=== PATIENT | female | born 1980 | race Caucasian/White ===

== ENCOUNTER 2018-05-23 01:50 | Emergency (ER) | payer SELFPAY ==
[~2018-05-23] VITALS: Ht 165.1 cm; Wt 91.6 kg
[2018-05-23] MEDS ORDERED: IBUP-1955 PO (01:58)
--- NOTE | 2018-05-23 03:00 | NUR ---
Patient ambulated with stable gait. AAOx4. Speech is clear, speaks in complete sentences. No neuro deficits noted. Patienc came in with c/o abdominal pain + vaginal bleeding x3 weeks. No respiratory distress noted. No SOB, no cough. No cardiovascular distress noted, all pulses palpable. Patient in lowest position on bed, side rails upx2, call light within reach. Fall precautions implemented per protocol.
[2018-05-23] MEDS ORDERED: KETOROLAC TROMETHAMINE 30 MG INJ ONE (03:10)
[2018-05-23 03:26] LABS: BASOPHILS # (AUTO) 0.1 K/uL (0.0-8.0); BASOPHILS % (AUTO) 0.6 % (0.0-2.0); EOSINOPHILS # (AUTO) 0.3 K/uL (0.0-0.7); EOSINOPHILS % (AUTO) 2.8 % (0.0-7.0); HEMATOCRIT 39.9 % (31.2-41.9); HEMOGLOBIN 13.2 g/dL (10.9-14.3); LYMPHOCYTES # (AUTO) 4.9 K/uL (20.0-40.0); LYMPHOCYTES % (AUTO) 42.9 % (20.5-51.5); MEAN CORPUSCULAR HEMOGLOBIN 29.3 uug (24.7-32.8); MEAN CORPUSCULAR HGB CONC 33 g/dL (32.3-35.6); MEAN CORPUSCULAR VOLUME 88.9 fL (75.5-95.3); MONOCYTES # (AUTO) 0.7 K/uL (2.0-10.0); MONOCYTES % (AUTO) 6.1 % (0.0-11.0); NEUTROPHILS # (AUTO) 5.5 K/uL (1.8-8.9); NEUTROPHILS % (AUTO) 47.6 % (38.5-71.5); PLATELET COUNT (AUTO) 304 K/uL (179-408); RED BLOOD CELL COUNT(AUTO) 4.49 MIL/uL (3.63-4.92); WHITE BLOOD COUNT (AUTO) 11.4 K/uL (3.8-11.8)
[2018-05-23 03:37] LABS: *BILIRUBIN,URIN NEGATIVE (NEGATIVE); *BLOOD, URINE 3+ (NEGATIVE); *CLARITY,URINE SLIGHTLY CLOUDY (CLEAR); *COLOR,URINE LIGHT YELLOW (YELLOW); *KETONES,URINE NEGATIVE (NEGATIVE); *UROBILINOGEN,URINE 0.2 E.U./dl (NORMAL); LEUKOCYTE ESTERASE ,URINE NEGATIVE (NEGATIVE); NITRITE, URINE NEGATIVE (NEGATIVE); PH,URINE 5.5 (5.0-8.0); UGLUCOSE NEGATIVE (NEGATIVE)
[2018-05-23 03:39] LABS: *URINE HCG, QUAL NEGATIVE (NEGATIVE)
--- NOTE | 2018-05-23 03:40 | NUR ---
US at bedside with female keycase assembler from [facility]
[2018-05-23 03:42] LABS: CREATININE 0.8 mg/dL (0.6-1.3); POTASSIUM 3.8 mmol/L (3.5-5.1)
[2018-05-23 03:43] LABS: BACTERIA,URINE NONE SEEN /HPF (NONE SEEN); RBC,URINE 80-100 /HPF (0-3); SQUAMOUS EPITHELIAL CELL,UR MODERATE /HPF (NONE SEEN)
[2018-05-23] MEDS ORDERED: KETOROLAC TROMETHAMINE 30 MG INJ IM ONE (04:30)
--- NOTE | 2018-05-23 05:03 | NUR ---
Patient discharged to home in stable conditon. Written and verbal after care instructions given. Patient verbalizes understanding of instructions. Pt. d/c w/ prescription per MD order, d/c papers signed, all belongings w/ pt., ambulated off unit w/ steady gait accompanied by , left in private vehicle, NAD
== END 2018-05-23 05:09 | disposition home or self-care (01) ==
LOC: ER 01:55
DX: D21.9 Benign neoplasm of connective and other soft tissue, unspecified (principal); R10.2 Pelvic and perineal pain; Z79.1 Long term (current) use of non-steroidal anti-inflammatories (NSAID)
CPT/HCPCS: 36415; 76856; 80048; 81001; 84703; 85025; 96372; 99284; J1885; A4663

== ENCOUNTER 2018-05-25 19:28 | Emergency (ER) | payer MEDICAID ==
[~2018-05-25] VITALS: Ht 165.1 cm; Wt 90.7 kg
[~2018-05-25 19:28] MED LIST: IBUP-1955 PO
[2018-05-25 20:11] LABS: *BILIRUBIN,URIN NEGATIVE (NEGATIVE); *CLARITY,URINE CLEAR (CLEAR); *COLOR,URINE YELLOW (YELLOW); *KETONES,URINE NEGATIVE (NEGATIVE); *UROBILINOGEN,URINE 0.2 E.U./dl (NORMAL); LEUKOCYTE ESTERASE ,URINE NEGATIVE (NEGATIVE); NITRITE, URINE NEGATIVE (NEGATIVE); PH,URINE 8.5 (5.0-8.0); UGLUCOSE NEGATIVE (NEGATIVE)
[2018-05-25 20:12] LABS: *BLOOD, URINE TRACE (NEGATIVE); *URINE HCG, QUAL NEGATIVE (NEGATIVE)
[2018-05-25 20:17] LABS: MUCUS,URINE FEW /LPF (0-FEW); SQUAMOUS EPITHELIAL CELL,UR MODERATE /HPF (NONE SEEN); WBC,URINE 0-3 /HPF (0-3)
--- NOTE | 2018-05-25 20:30 | NUR ---
Dr. Rojas at bedside for MSE.
[2018-05-25] MEDS: IV NORMAL SALINE 1000 ML BAG IV ONE ×2 (20:50→21:40)
[2018-05-25] MEDS ORDERED: IBUPROFEN 800 MG TABLET ONE (20:54)
[2018-05-25] MEDS ORDERED: ACETAMINOPHEN ES 500 MG TABLET ONE (20:54)
[2018-05-25] MEDS: ACETAMINOPHEN ES 500 MG TABLET PO ONE (20:55)
[2018-05-25] MEDS: IBUPROFEN 800 MG TABLET PO ONE (20:55)
--- NOTE | 2018-05-25 20:55 | NUR ---
Xray at bedside.
[2018-05-25 20:56] LABS: BASOPHILS % (AUTO) 0.6 % (0.0-2.0); EOSINOPHILS # (AUTO) 0.1 K/uL (0.0-0.7); EOSINOPHILS % (AUTO) 1.4 % (0.0-7.0); HEMATOCRIT 36.4 % (31.2-41.9); HEMOGLOBIN 12.1 g/dL (10.9-14.3); LYMPHOCYTES # (AUTO) 1.3 K/uL (20.0-40.0); LYMPHOCYTES % (AUTO) 16.8 % (20.5-51.5); MEAN CORPUSCULAR HEMOGLOBIN 29.2 uug (24.7-32.8); MEAN CORPUSCULAR HGB CONC 33 g/dL (32.3-35.6); MEAN CORPUSCULAR VOLUME 87.6 fL (75.5-95.3); MONOCYTES # (AUTO) 0.7 K/uL (2.0-10.0); MONOCYTES % (AUTO) 9.5 % (0.0-11.0); NEUTROPHILS # (AUTO) 5.4 K/uL (1.8-8.9); NEUTROPHILS % (AUTO) 71.7 % (38.5-71.5); PLATELET COUNT (AUTO) 263 K/uL (179-408); RED BLOOD CELL COUNT(AUTO) 4.16 MIL/uL (3.63-4.92); WHITE BLOOD COUNT (AUTO) 7.5 K/uL (3.8-11.8)
[2018-05-25 21:05] LABS: CREATININE 0.7 mg/dL (0.6-1.3); POTASSIUM 3.7 mmol/L (3.5-5.1)
[2018-05-25 21:17] LABS: BILIRUBIN,DIRECT 0.1 mg/dL (0.0-0.2); BILIRUBIN,TOTAL 0.3 mg/dL (0.2-1.0); TOTAL PROTEIN, SERUM 8.5 g/dL (6.4-8.2)
--- NOTE | 2018-05-25 21:42 | NUR ---
Patient's temperature 102.0 F oral. notified.
--- NOTE | 2018-05-25 22:17 | NUR ---
Pt out of ER for CT.
--- NOTE | 2018-05-25 22:27 | NUR ---
Pt back to ER from CT.
[2018-05-25] MEDS ORDERED: CEFTRIAXONE 1 G VIAL ONE (22:42)
[2018-05-25] MEDS ORDERED: LIDOCAINE HCL 1% 20 ML VIAL ONE (22:45)
[2018-05-25] MEDS: CEFTRIAXONE 2 G in IV DEXTROSE 5% 100 ML IV ONE (22:57)
[2018-05-25] MEDS: LIDOCAINE HCL 1% 20 ML VIAL IJ ONE (22:57)
[2018-05-25] MEDS ORDERED: MORPHINE SULFATE 4 MG/1 ML DISP.SYRIN ONE (23:12)
[2018-05-25] MEDS ORDERED: ONDANSETRON 4 MG/2 ML VIAL ONE (23:12)
[2018-05-25] MEDS: MORPHINE SULFATE 4 MG/1 ML DISP.SYRIN IV ONE (23:14)
[2018-05-25] MEDS: ONDANSETRON 4 MG/2 ML VIAL IV ONE (23:15)
--- NOTE | 2018-05-25 23:18 | NUR ---
Pt's temperature decreased to 98.9 F. notified.
[2018-05-25 23:44] LABS: CSF PROTEIN 32 mg/dL (15-45)
[2018-05-25 23:45] LABS: CSF GLUCOSE 93 mg/dL (40-70)
--- NOTE | 2018-05-26 00:20 | NUR ---
Patient discharged to home in stable conditon. Written and verbal after care instructions given. Patient verbalizes understanding of instructions. Patient ambulated out of ER with steady gait, no acute signs of distress, VSS, all belongings taken, IV site discontinued, to be driven home via private vehicle by .
[2018-05-26 00:22] VITALS: BP 118/72
[2018-05-28 10:07] LABS: *HSV 1/2 PCR 1DNA CSF Negative (Negative); *HSV 1/2 PCR 2DNA CSF Negative (Negative)
== END 2018-05-26 00:22 | disposition home or self-care (01) ==
LOC: ER 19:28
DX: R51 Headache (principal); R50.9 Fever, unspecified; R20.2 Paresthesia of skin; R09.89 Other specified symptoms and signs involving the circulatory and respiratory systems; R05 Cough; Z79.1 Long term (current) use of non-steroidal anti-inflammatories (NSAID)
CPT/HCPCS: 36415; 62270; 70450; 71045; 80048; 80076; 81001; 82945; 83605; 84157; 84703; 85025; 86403; 87040 ×2; 87070 ×2; 87086; 87205; 87400; 87529; 89051; 93005; 96361; 96365; 96375; 99284; J0696; J2270; J2405; J3490; J7060; A4663; A9150; J7030

== ENCOUNTER 2018-05-28 13:11 | Emergency (ER) | payer MEDICAID ==
[~2018-05-28] VITALS: Ht 165.1 cm; Wt 90.7 kg
--- NOTE | 2018-05-28 13:21 | NUR ---
PT A/OX4, PRESENTS TO THE ER C/O HEADACHE. PT WAS EXAMINED IN THIS ER FOR THE SAME COMPLAINT ON 05/25/18. PT DENIES PHOTOPHOBIA. NO FACIAL DROOP NOTED, NO ARM DRIFT, NO HEMILATERAL WEAKNESS. SECONDARY COMPLAINT: NAUSEA VSS. PT DENIES PAIN, C/P, SOB, DIZZINESS. ER MD AT BEDSIDE FOR MSE.
[2018-05-28] MEDS ORDERED: IV NORMAL SALINE 1000 ML BAG IV ONE (13:30)
[2018-05-28] MEDS ORDERED: PROCHLORPERAZINE EDISYLATE 10 MG/2 ML VIAL IV ONE (13:30)
[2018-05-28] MEDS ORDERED: diphenhydrAMINE 50 MG/1 ML VIAL IV ONE (13:30)
[2018-05-28] MEDS ORDERED: MORPHINE SULFATE 2 MG/1 ML DISP.SYRIN IV ONE (13:30)
[2018-05-28] MEDS ORDERED: diphenhydrAMINE 50 MG/1 ML VIAL ONE (13:46)
[2018-05-28] MEDS ORDERED: PROCHLORPERAZINE EDISYLATE 10 MG/2 ML VIAL ONE (13:46)
[2018-05-28] MEDS ORDERED: MORPHINE SULFATE 4 MG/1 ML DISP.SYRIN ONE (13:46)
--- NOTE | 2018-05-28 14:29 | NUR ---
GURPREET STONE AT BEDSIDE FOR PT UPDATE.
--- NOTE | 2018-05-28 14:57 | NUR ---
PT STABLE ON HER FEET, ABLE TO SELF-AMBULATE W/O DIFFICULTY.
[2018-05-28 15:08] VITALS: BP 118/77
--- NOTE | 2018-05-28 15:08 | NUR ---
Patient discharged to home in stable conditon. Written and verbal after care instructions given. Patient verbalizes understanding of instructions. PT D/C W/ PRESCRIPTIONS. ALL BELONGINGS W/ PT. PT SELF-AMBULATED W/O DIFFICULTY. PT WILL BE DRIVEN HOME BY SPOUSE IN PRIVATE VEHICLE. 22G IV ACCESS IN L HAND REMOVED PRIOR TO D/C - INNER CANNULA INTACT.
== END 2018-05-28 15:09 | disposition home or self-care (01) ==
LOC: ER 13:11
DX: R51 Headache (principal); R11.10 Vomiting, unspecified; H53.149 Visual discomfort, unspecified; Z79.1 Long term (current) use of non-steroidal anti-inflammatories (NSAID)
CPT/HCPCS: 96361; 96374; 96375; 99283; J0780; J1200; J2270; A4663; J7030

== ENCOUNTER 2018-07-18 23:47 | Emergency (ER) | payer MEDICAID ==
[~2018-07-18] VITALS: Ht 165.1 cm; Wt 86.2 kg
--- NOTE | 2018-07-19 00:10 | NUR ---
Patient ambulated with stable gait. A/Ox4. Speech is clear, speaks in complete sentences. Patient came in for c/o headache s/p heavy menstrual cycles x 3 weeks ago. Respiratory even and unlabored, but c/o sob. No current GI/ distress Patient in bed accompanied by friend at bedside, bed at lowest position, sr upx2, call light within reach. Fall precautions implemented per protocol.
[2018-07-19] MEDS ORDERED: MORPHINE SULFATE 2 MG/1 ML DISP.SYRIN ONE (00:14)
[2018-07-19] MEDS ORDERED: MORPHINE SULFATE 2 MG/1 ML DISP.SYRIN IV ONE (00:15)
[2018-07-19] MEDS ORDERED: IV NORMAL SALINE 1000 ML BAG IV ONE (00:15)
[2018-07-19 00:23] LABS: BASOPHILS % (AUTO) 0.4 % (0.0-2.0); EOSINOPHILS # (AUTO) 0.3 K/uL (0.0-0.7); HEMATOCRIT 26.2 % (31.2-41.9); HEMOGLOBIN 8.6 g/dL (10.9-14.3); LYMPHOCYTES # (AUTO) 4.5 K/uL (20.0-40.0); LYMPHOCYTES % (AUTO) 42.9 % (20.5-51.5); MEAN CORPUSCULAR HEMOGLOBIN 27.9 uug (24.7-32.8); MEAN CORPUSCULAR HGB CONC 33 g/dL (32.3-35.6); MEAN CORPUSCULAR VOLUME 84.6 fL (75.5-95.3); MONOCYTES # (AUTO) 0.7 K/uL (2.0-10.0); MONOCYTES % (AUTO) 6.1 % (0.0-11.0); NEUTROPHILS % (AUTO) 47.6 % (38.5-71.5); PLATELET COUNT (AUTO) 326 K/uL (179-408); RED BLOOD CELL COUNT(AUTO) 3.09 MIL/uL (3.63-4.92); WHITE BLOOD COUNT (AUTO) 10.6 K/uL (3.8-11.8)
[2018-07-19 00:30] LABS: CREATININE 0.7 mg/dL (0.6-1.3); POTASSIUM 4.2 mmol/L (3.5-5.1)
[2018-07-19 01:12] VITALS: BP 110/71
--- NOTE | 2018-07-19 01:12 | NUR ---
Patient discharged to home in stable conditon. Written and verbal after care instructions given. Patient verbalizes understanding of instructions. Patient ambulated with stable gait.
== END 2018-07-19 01:13 | disposition home or self-care (01) ==
LOC: ER 23:48
DX: N93.9 Abnormal uterine and vaginal bleeding, unspecified (principal); D50.0 Iron deficiency anemia secondary to blood loss (chronic); R42 Dizziness and giddiness; R51 Headache; Z79.1 Long term (current) use of non-steroidal anti-inflammatories (NSAID)
CPT/HCPCS: 36415; 71045; 80048; 84484; 84702; 85025; 93005; 96361; 96374; 99284; J2270; 70030-TC; A4663; J7030

== ENCOUNTER 2019-04-24 00:17 | Emergency (ER) | payer MEDICAID ==
[~2019-04-24] VITALS: Ht 165.1 cm; Wt 86.2 kg
--- NOTE | 2019-04-24 00:35 | NUR ---
PATIENT WAS MSE BY DR HASKINS IN ROOM 01A. PATIENT A & O X4.
[2019-04-24] MEDS ORDERED: ONDANSETRON ODT 4 MG TAB.RAPDIS ONE (00:40)
[2019-04-24] MEDS ORDERED: HYDROCODONE/APAP 10-325 MG TABLET ONE (00:40)
[2019-04-24] MEDS ORDERED: ONDANSETRON ODT 4 MG TAB.RAPDIS SL ONE (00:45)
[2019-04-24] MEDS ORDERED: HYDROCODONE/APAP 10-325 MG TABLET PO ONE (00:45)
--- NOTE | 2019-04-24 01:17 | NUR ---
Patient discharged to home in stable condition. Written and verbal after care instructions given. Patient and family verbalizes understanding of instructions.
[2019-04-24 01:19] VITALS: BP 114/67
== END 2019-04-24 01:20 | disposition home or self-care (01) ==
LOC: ER 00:18
DX: G43.109 Migraine with aura, not intractable, without status migrainosus (principal); Z79.899 Other long term (current) drug therapy; Z79.84 Long term (current) use of oral hypoglycemic drugs
CPT/HCPCS: 93005; A4663; Q0162

== ENCOUNTER 2021-09-03 12:32 | Emergency (ER) | payer MEDICAID ==
[~2021-09-03] VITALS: Ht 165.1 cm; Wt 86.2 kg
[~2021-09-03 12:32] MED LIST changes: +METF-440 PO
--- NOTE | 2021-09-03 12:35 | NUR ---
MD at bedside, medical screening exam in progress.
--- NOTE | 2021-09-03 12:50 | NUR ---
DR LINDSEY AT BEDSIDE FOR EVALUATION.
[2021-09-03] MEDS ORDERED: PROCHLORPERAZINE EDISYLATE 10 MG/2 ML VIAL ONE (12:52)
[2021-09-03] MEDS ORDERED: KETOROLAC TROMETHAMINE 15 MG INJ ONE (12:52)
[2021-09-03] MEDS ORDERED: PROCHLORPERAZINE EDISYLATE 10 MG/2 ML VIAL IV ONE (13:00)
[2021-09-03] MEDS ORDERED: KETOROLAC TROMETHAMINE 15 MG INJ IVP ONE (13:00)
[2021-09-03 13:01] LABS: HEMATOCRIT 36.8 % (31.2-41.9); MEAN CORPUSCULAR HEMOGLOBIN 27.8 uug (24.7-32.8); MEAN CORPUSCULAR VOLUME 84.3 fL (75.5-95.3); PLATELET COUNT (AUTO) 314 K/uL (179-408)
[2021-09-03 13:24] LABS: BILIRUBIN,DIRECT 0.1 mg/dL (0.0-0.2); BILIRUBIN,TOTAL 0.3 mg/dL (0.2-1.0); CREATININE 0.8 mg/dL (0.6-1.3); TOTAL PROTEIN, SERUM 8.5 g/dL (6.4-8.2)
[2021-09-03] MEDS ORDERED: CODE1CAP24 GT (14:37)
--- NOTE | 2021-09-03 15:24 | NUR ---
Patient discharged to home in stable condition. Written and verbal after care instructions given to pt and family. Patient verbalizes understanding of instructions. Stressed follow up or return to ER for worsening s/s. IV site removed aseptically.
[2021-09-03 15:25] VITALS: BP 128/70
== END 2021-09-03 15:26 | disposition home or self-care (01) ==
LOC: ER 12:32
DX: R07.9 Chest pain, unspecified (principal); E11.9 Type 2 diabetes mellitus without complications; Z79.84 Long term (current) use of oral hypoglycemic drugs
CPT/HCPCS: 36415; 71045; 80048; 80076; 84484; 85025; 93005; 96374; 96375; 99285; J0780; J1885; A4663

== ENCOUNTER 2021-10-09 20:56 | Emergency (ER) | payer MEDICAID ==
[~2021-10-09] VITALS: Ht 154.9 cm; Wt 87.5 kg
[~2021-10-09 20:56] MED LIST changes: +CODE1CAP24 GT
--- NOTE | 2021-10-09 22:53 | NUR ---
Patient walked in ER with steady gait. NAD noted. patient is a/ox4
[2021-10-09] MEDS ORDERED: ACETAMINOPHEN 325 MG TABLET PO ONE (23:00)
[2021-10-09] MEDS ORDERED: SULFAMETH/TRIMETH 800/160 MG TABLET PO ONE (23:00)
[2021-10-09] MEDS ORDERED: SULFAMETH/TRIMETH 800/160 MG TABLET ONE (23:01)
[2021-10-09] MEDS ORDERED: ACETAMINOPHEN 325 MG TABLET ONE (23:01)
[2021-10-09] MEDS ORDERED: LIDOCAINE 1%-EPI 1:100,000 20 ML VIAL ONE (23:09)
[2021-10-09] MEDS ORDERED: LIDOCAINE 1%-EPI 1:100,000 20 ML VIAL IJ ONE (23:15)
[2021-10-09] MEDS ORDERED: BACITRACIN ZINC OINT 15 GM TUBE ONE (23:30)
--- NOTE | 2021-10-09 23:30 | NUR ---
Dr Sylvester verbally ordered bacitracin ointment. Medication given
[2021-10-09 23:41] LABS: *URINE HCG, QUAL NEGATIVE (NEGATIVE)
[2021-10-09] MEDS ORDERED: ACET-2154 PO (23:58)
[2021-10-09] MEDS ORDERED: SULF1TAB48 PO (23:58)
--- NOTE | 2021-10-10 00:11 | NUR ---
Patient discharged to home in stable condition. Written and verbal after care instructions given. Patient verbalizes understanding of instructions. Stressed follow up or return to ER for worsening s/s. Patient is a/ox4, NAD noted. Patient is able to walk with steady gait
[2021-10-10 00:12] VITALS: BP 122/81
== END 2021-10-10 00:12 | disposition home or self-care (01) ==
LOC: ER 21:02
DX: L02.416 Cutaneous abscess of left lower limb (principal); L03.116 Cellulitis of left lower limb; E11.9 Type 2 diabetes mellitus without complications; E78.5 Hyperlipidemia, unspecified; E66.9 Obesity, unspecified; Z68.36 Body mass index [BMI] 36.0-36.9, adult; Z79.84 Long term (current) use of oral hypoglycemic drugs
CPT/HCPCS: 99284; 10060; 76536; 84703; J3490; A4663

== ENCOUNTER 2023-07-17 22:02 | Emergency (ER) | payer MEDICAID, OTHER ==
[~2023-07-17] VITALS: Ht 160 cm; Wt 86.2 kg
[~2023-07-17 22:02] MED LIST changes: +ACET-2154 PO; +SULF1TAB48 PO
[2023-07-17] MEDS ORDERED: CLINDAMYCIN 900MG/D5W 100ML IVPB **ER PYXIS ONLY IJ ONE (22:20)
[2023-07-17] MEDS ORDERED: CLIN300C12 PO (22:24)
[2023-07-17] MEDS: CLINDAMYCIN PHOSPHATE IV 900 MG in IV DEXTROSE 5% 100 ML IV ONE (22:25)
[2023-07-17] MEDS ORDERED: IBUPROFEN 600 MG TABLET ONE ×2 (23:02→23:03)
[2023-07-17] MEDS: IBUPROFEN 600 MG TABLET PO ONE (23:05)
[2023-07-17 23:06] VITALS: BP 146/86; O2SAT 99
== END 2023-07-17 23:05 | disposition home or self-care (01) ==
LOC: ER 22:07
DX: N76.4 Abscess of vulva (principal); G43.909 Migraine, unspecified, not intractable, without status migrainosus; E78.5 Hyperlipidemia, unspecified; E66.9 Obesity, unspecified; Z68.33 Body mass index [BMI] 33.0-33.9, adult; Z79.899 Other long term (current) drug therapy; Z88.2 Allergy status to sulfonamides
CPT/HCPCS: 99283; 96374; J3490 ×2; A4606; A4663

== ENCOUNTER 2024-03-04 | Emergency (ER) | payer OTHER, MEDICAID ==
[~2024-03-04] VITALS: Ht 165.1 cm; Wt 86.2 kg
[~2024-03-04] MED LIST changes: +CLIN300C12 PO; +CLIN300C3 PO; +HYDR-4209 PO
[2024-03-04] MEDS ORDERED: KETOROLAC TROMETHAMINE 15 MG INJ ONE (03:09)
[2024-03-04] MEDS ORDERED: METOCLOPRAMIDE HCL 10 MG/2 ML VIAL ONE (03:09)
[2024-03-04] MEDS: KETOROLAC TROMETHAMINE 15 MG INJ IVP ONE (03:15)
[2024-03-04] MEDS: METOCLOPRAMIDE HCL 10 MG/2 ML VIAL IV ONE (03:15)
[2024-03-04 03:16] LABS: BASOPHILS # (AUTO) 0.1 K/UL (0.0-0.2); BASOPHILS % (AUTO) 0.7 % (0.0-2.0); EOSINOPHILS # (AUTO) 0.1 K/uL (0.0-0.7); EOSINOPHILS % (AUTO) 1.8 % (0.0-7.0); HEMATOCRIT 29.5 % (31.2-41.9); HEMOGLOBIN 9.3 g/dL (10.9-14.3); LYMPHOCYTES # (AUTO) 3.8 K/uL (0.8-4.8); LYMPHOCYTES % (AUTO) 47.5 % (20.5-51.5); MEAN CORPUSCULAR HEMOGLOBIN 22.8 uug (24.7-32.8); MEAN CORPUSCULAR HGB CONC 32 g/dL (32.3-35.6); MEAN CORPUSCULAR VOLUME 72.1 fL (75.5-95.3); MONOCYTES # (AUTO) 0.4 K/uL (0.1-1.30); MONOCYTES % (AUTO) 5.5 % (0.0-11.0); NEUTROPHILS # (AUTO) 3.6 K/uL (1.8-8.9); NEUTROPHILS % (AUTO) 44.5 % (38.5-71.5); PLATELET COUNT (AUTO) 362 K/uL (179-408); RED CELL DISTRIBUTION WIDTH 17.9 % (12.3-17.7)
[2024-03-04 03:23] LABS: *BILIRUBIN,URIN NEGATIVE (NEGATIVE); *BLOOD, URINE 2+ (NEGATIVE); *CLARITY,URINE CLEAR (CLEAR); *COLOR,URINE YELLOW (YELLOW); *KETONES,URINE NEGATIVE (NEGATIVE); *PROTEIN,URINE NEGATIVE (NEGATIVE); *UROBILINOGEN,URINE 0.2 E.U./dl (NORMAL); LEUKOCYTE ESTERASE ,URINE NEGATIVE (NEGATIVE); NITRITE, URINE NEGATIVE (NEGATIVE); PH,URINE 5.5 (5.0-8.0); UGLUCOSE 3+ (NEGATIVE)
[2024-03-04 03:25] LABS: *URINE HCG, QUAL NEGATIVE (NEGATIVE)
[2024-03-04 03:28] LABS: DIFFERENTIAL COMMENT 1
[2024-03-04 03:33] LABS: CALCIUM 8.7 mg/dL (8.5-10.1); CARBON DIOXIDE 27 mmol/L (21-32); CHLORIDE 101 mmol/L (98-107); CREATININE 0.6 mg/dL (0.6-1.3); GLUCOSE 260 mg/dL (74-106); POTASSIUM 3.7 mmol/L (3.5-5.1); SODIUM SERUM 137 mmol/L (136-145); UREA NITROGEN, BLOOD 10 mg/dL (7-18)
[2024-03-04 03:41] LABS: PREGNANCY TEST SERUM QUAN < 1 miul/L (0-6)
[2024-03-04 03:42] LABS: ALANINE AMINOTRANSFERASE 34 U/L (14-59); ALBUMIN 3.5 g/dL (3.4-5.0); ALKALINE PHOSPHATASE 88 U/L (50-136); ASPARTATE AMINOTRANSFERASE 11 U/L (15-37); BILIRUBIN,DIRECT < 0.1 mg/dL (0.0-0.2); BILIRUBIN,TOTAL 0.3 mg/dL (0.2-1.0); TOTAL PROTEIN, SERUM 7.7 g/dL (6.4-8.2)
[2024-03-04 03:49] LABS: BACTERIA,URINE NONE SEEN /HPF (NONE SEEN); RBC,URINE 0-3 /HPF (0-3); SQUAMOUS EPITHELIAL CELL,UR FEW /HPF (NONE SEEN); WBC,URINE 0-3 /HPF (0-3); YEAST,URINE FEW /HPF (NONE SEEN)
[2024-03-04 03:55] LABS: LIPASE 42 U/L (16-77)
[2024-03-04 07:08] VITALS: O2SAT 98
== END 2024-03-04 09:26 | disposition short-term general hospital (02) ==
LOC: ER 00:03
DX: K81.0 Acute cholecystitis (principal); R16.0 Hepatomegaly, not elsewhere classified; E11.9 Type 2 diabetes mellitus without complications; R10.2 Pelvic and perineal pain; E66.9 Obesity, unspecified; E78.5 Hyperlipidemia, unspecified; Z20.822 Contact with and (suspected) exposure to COVID-19; Z68.31 Body mass index [BMI] 31.0-31.9, adult; Z88.1 Allergy status to other antibiotic agents; Z88.2 Allergy status to sulfonamides; Z88.7 Allergy status to serum and vaccine
CPT/HCPCS: 99285; 74176; 96374; 76705; 96375; 87426; 87081; 80076; 80048; 81001; 82962; 84703; 83690; 85025; 85730; 84484; 84702; 36415; 93005; 87086; J1885; J2765; A4606; A4663

== ENCOUNTER 2024-04-05 20:39 | Emergency (ER) | payer MEDICAID, OTHER ==
[~2024-04-05] VITALS: Ht 165.1 cm; Wt 81.6 kg
[2024-04-05] MEDS ORDERED: CLINDAMYCIN HCL 300 MG CAPSULE ONE (23:44)
[2024-04-05] MEDS: CLINDAMYCIN HCL 150 MG CAPSULE PO ONE (23:48)
[2024-04-06 00:01] VITALS: BP 128/88; TEMP 98; O2SAT 100
== END 2024-04-06 00:01 | disposition home or self-care (01) ==
LOC: ER 20:39
DX: E11.9 Type 2 diabetes mellitus without complications (principal); R22.2 Localized swelling, mass and lump, trunk; E66.9 Obesity, unspecified; E78.5 Hyperlipidemia, unspecified; G43.909 Migraine, unspecified, not intractable, without status migrainosus; Z68.30 Body mass index [BMI] 30.0-30.9, adult; Z88.1 Allergy status to other antibiotic agents; Z88.2 Allergy status to sulfonamides; Z88.7 Allergy status to serum and vaccine
CPT/HCPCS: A4606; A4663